=== PATIENT | female | born 1955 | race Caucasian/White ===

== ENCOUNTER 2019-01-19 10:55 | Emergency (ER) | payer OTHER ==
[2019-01-19 11:29] VITALS: BP 130/78
--- NOTE | 2019-01-19 12:57 | UC ---
Back Pain HPI - HPI Summary HPI Summary: Pt did outdoor work 3 days ago and felt a little bit of right sided back pain which resolved. Since then she developed the back pain again on right mid-back especially with deep inspiration. Pt is a non-smoker. No fever, no urinary symptoms, no history of UTI or kidney stones. She is not able to replicate the pain with movement, only with deep inspiration. - History of Current Complaint Chief Complaint: UCGeneralIllness Stated Complaint: BACK PAIN Time Seen by Provider: 01/19/19 12:23 Hx Obtained From: Patient ?: No Onset/Duration: Gradual Onset Timing: Intermittent Severity Initially: Mild Severity Currently: Mild Pain Intensity: 3 Character: Sharp Aggravating Factor(s): Other - Mostly with deep inspiration Alleviating Factor(s): Rest Associated Signs And Symptoms: Positive: Flank Pain - Pt states the pain radiates around to the front from back. - Allergies/Home Medications Allergies/Adverse Reactions: Allergies Allergy/AdvReac Type Severity Reaction Status Date / Time No Known Allergies Allergy Verified 01/19/19 11:21 Home Medications: Home Medications Ibuprofen TAB* [Advil TAB*] 400 mg PO Q6H PRN 01/19/19 [History Confirmed ] PMH/Surg Hx/FS Hx/Imm Hx Previously Healthy: Yes - Surgical History Surgical History: Yes Surgery Procedure, Year, and Place: R arm- fracture with plate/screws. - Family History Known Family History: Positive: Non-Contributory - Social History Alcohol Use: Occasionally Substance Use Type: None Smoking Status (MU): Never Smoked Tobacco Review of Systems All Other Systems Reviewed And Are Negative: Yes Respiratory: Positive: Other - Denies SOB but dos have pain with deep inspiration. Is Patient Immunocompromised?: No Physical Exam Triage Information Reviewed: Yes Appearance: Well-Appearing, No Pain Distress, Well-Nourished Vital Signs: Initial Vital Signs Temp 99.2 F 01/19/19 11:22 Pulse 93 01/19/19 11:22 Resp 16 01/19/19 11:22 BP 130/78 01/19/19 11:22 Pulse Ox 97 01/19/19 11:22 Vital Signs Reviewed: Yes Eyes: Positive: Conjunctiva Clear ENT: Positive: Hearing grossly normal, Pharynx normal, TMs normal, Uvula midline Neck: Positive: Supple, Nontender, No Lymphadenopathy Respiratory: Positive: Lungs clear, No respiratory distress, No accessory muscle use, Decreased breath sounds - Mildly decreased breath sounds right side Cardiovascular: Positive: RRR, No Murmur, Pulses Normal, Brisk Capillary Refill Abdomen Description: Positive: Nontender, No Organomegaly, Soft Bowel Sounds: Positive: Present Musculoskeletal: Positive: Strength Intact, ROM Intact - Mild CVAT right side Neurological Exam: Normal Psychological Exam: Normal Skin Exam: Normal Back Pain Course/Dx - Course Course Of Treatment: CXR:FINDINGS: The heart and mediastinum are normal in size and contour. There is patchy density seen at the right lung base on the AP view that appears to be localized posteriorly on the lateral view. Elsewhere the lungs are adequately aerated. Visualized bones are normal for the patient's age. There is no radiographic evidence of free air beneath the diaphragm IMPRESSION: PATCHY DENSITY AT THE RIGHT LUNG BASE COULD BE PNEUMONIA IN THE CORRECT CLINICAL SETTING. RECOMMEND A FOLLOW-UP CHEST X-RAY AFTER AN APPROPRIATE COURSE OF THERAPY TO ASCERTAIN RESOLUTION. Strongly stressed follow up. Pt is from [place] and will follow up there with her PCP. - Differential Dx/Diagnosis Provider Diagnosis: Right lower lobe pneumonia Discharge - Sign-Out/Discharge Documenting (check all that apply): Patient Departure All imaging exams completed and their final reports reviewed: Yes - Discharge Plan Condition: Fair Disposition: HOME Prescriptions: Azithromyxin JOAQUIN (NF) [Z-Joaquin (Zithromax) 250 mg tabs #6] 2 tab PO .TODAY, THEN 1 DAILY #6 tab Patient Education Materials: Community Acquired Pneumonia (DC) Referrals: [facility] [Outside] No Primary Care Phys,NOPCP [Primary Care Provider] - Additional Instructions: Increase fluids, Tylenol/Motrin as directed for pain. Definite call to your doctor on Monday or to [facility] clinic for follow up. It is extremely important you follow up to make sure the pneumonia had cleared completely. Go to the ER if you have any difficulty breathing or shortness of breath. - Billing Disposition and Condition Condition: FAIR Disposition: Home
== END 2019-01-19 13:43 | disposition home or self-care (01) ==
LOC: UCCORT 10:55
DX: J18.9 Pneumonia, unspecified organism (principal)
CPT/HCPCS: 71046; 81003; 99202; G0463

== ENCOUNTER 2019-01-24 09:53 | Emergency (ER) | payer OTHER ==
[2019-01-24 11:16] VITALS: BP 112/78
--- NOTE | 2019-01-24 11:16 | UC ---
Respiratory Complaint HPI - HPI Summary HPI Summary: 63 y/o female presents to the urgent care c/o Seen on 01/19/19 with right mid back pain. Worse with inspiration. Chest xray showed possible pneumonia. Was put on zpack, some improvement but not 100%. Can not lie down without pain. - History of Current Complaint Stated Complaint: PNEMONIA FOLLOW-UP Time Seen by Provider: 01/24/19 11:13 Hx Obtained From: Patient Pain Intensity: 0 - Allergies/Home Medications Allergies/Adverse Reactions: Allergies Allergy/AdvReac Type Severity Reaction Status Date / Time No Known Allergies Allergy Verified 01/24/19 11:15 Home Medications: Home Medications Calcium Carbonate [Calcium] 500 mg PO DAILY 01/24/19 [History Confirmed 01/24/19 ] Cyanocobalamin (Vitamin B-12) [Vitamin B-12] 1,000 mcg PO DAILY 01/24/19 [ History Confirmed 01/24/19] [place]-3 Fatty Acids/Fish Oil [Fish Oil 1,200 mg Softgel] 1 cap PO DAILY [History Confirmed 01/24/19] PMH/Surg Hx/FS Hx/Imm Hx - Surgical History Surgical History: Yes Surgery Procedure, Year, and Place: R arm- fracture with plate/screws. - Family History Known Family History: Positive: Non-Contributory - Social History Alcohol Use: Occasionally Substance Use Type: None Smoking Status (MU): Never Smoked Tobacco Physical Exam Vital Signs: Initial Vital Signs Temp 98.8 F 01/24/19 11:10 Pulse 94 01/24/19 11:10 Resp 16 01/24/19 11:10 BP 112/78 01/24/19 11:10 Pulse Ox 97 01/24/19 11:10 Respiratory Course/Dx - Course Course Of Treatment: REPORT: Worsening small dependent RIGHT pleural effusion and basilar atelectasis and consolidation. Additionally there is mild consolidation at the LEFT lung base increased over the prior exam. Grossly clear LEFT pleural space. Negative for pneumothorax. The heart, pulmonary vasculature, and mediastinal contours are unremarkable. - Differential Dx/Diagnosis Provider Diagnosis: Community acquired pneumonia Discharge - Sign-Out/Discharge Documenting (check all that apply): Patient Departure - D/C home All imaging exams completed and their final reports reviewed: Yes - Discharge Plan Condition: Stable Disposition: HOME Prescriptions: DOXYcycline CAP(*) [DOXYcycline 100MG CAP(*)] 100 mg PO BID #20 cap Patient Education Materials: Community Acquired Pneumonia (ED) Referrals: [facility] [Outside] - 2 Days Additional Instructions: 1-Please take full course of doxycycline PO as directed to avoid resistance. Starting tomorrow since today you were given IM inj of Rocephin 2- Use the albuterol inhaler w/ aerochamber to alleviate cough/ mild wheezing. Increase fluid intake, rest and eat well. 3- If symptoms do not improve or worsen or your develop SOB with fever and severe cough please go immediately to the ER further evaluation and treatment. 4-See your PCP in 2-3 days to check your symptoms are improving 5- Use the Incentive Spirometer as directed by nurse to improve lung function and avoid atelectsis - Billing Disposition and Condition Condition: STABLE Disposition: Home
[2019-01-24] MEDS: cefTRIAXone VIAL(*) 1,000 MG VIAL IM ONE (12:33)
[2019-01-24] MEDS: Lidocaine 1%* 5 ML VIAL INJ ONE (12:36)
== END 2019-01-24 12:46 | disposition home or self-care (01) ==
LOC: UCCORT 09:53
DX: J18.9 Pneumonia, unspecified organism (principal)
CPT/HCPCS: 71046; 96372; 99212; G0463; J0696